=== PATIENT | female | born 1960 | race Caucasian/White ===

== ENCOUNTER 2019-10-09 07:13 | Outpatient (REF) | payer SELFPAY ==
[2019-10-09 11:27] LABS: Estmated Average Glucose 123; Hemoglobin A1C 5.9 % (4.0-6.0)
[2019-10-09 11:34] LABS: Chol HDL Ratio 3.19 mg/dL (0.0-4.40); Cholesterol 150 mg/dL (0-200); Glucose 101 mg/dL (65-115); HDL Cholesterol 47 mg/dL (60-100); LDL Cholesterol Calculated 81 mg/dL (50-129); LDL HDL Ratio 1.72 RATIO (0.00-3.22); Thyroid Stimulating Hormone 3.76 uIU/mL (0.27-4.20); Triglycerides 111 mg/dL (0-150)
== END 2019-10-09 07:14 | disposition home or self-care (01) ==
LOC: LAB 07:13
PROVIDERS: Family Provider Internal Medicine; Visit Provider Dermatology
DX: Z01.89 Encounter for other specified special examinations (principal)
CPT/HCPCS: 80061; 82947; 83036; 84443

== ENCOUNTER 2025-06-11 14:38 | Outpatient (CLI) | payer MEDICARE, SELFPAY ==
--- NOTE | 2025-06-11 14:47 | MM_ITS ---
WS: [id number] BILATERAL 3D TOMOSYNTHESIS DIGITAL SCREENING MAMMOGRAPHY WITH CAD CLINICAL INFORMATION: SCREENING HISTORY: Screening mammogram. No current complaints. COMPARISON: 2012 TECHNIQUE: Bilateral CC and MLO views. FINDINGS: Scattered fibroglandular densities bilaterally. Small 4 mm ovoid asymmetric density anterior lateral LEFT breast. Recommend further evaluation with LEFT breast diagnostic mammography and ultrasound if persistent. This is only well seen on the view. Unremarkable RIGHT breast. MM/MM [facility] tomosynthesis [id number] IMPRESSION: DENSITY: There are scattered areas of fibroglandular density. BI-RADS: 0 - Incomplete: Need additional imaging evaluation. FOLLOW UP: Need Additional Imaging Recommend LEFT breast diagnostic mammography and ultrasound if persistent
== END 2025-06-11 14:39 | disposition home or self-care (01) ==
LOC: RAD 14:44
PROVIDERS: PCP Family Medicine; Visit Provider Family Medicine
DX: Z12.31 Encounter for screening mammogram for malignant neoplasm of breast (principal); R92.323 Mammographic fibroglandular density, bilateral breasts; N64.89 Other specified disorders of breast
CPT/HCPCS: 77063; 77067

== ENCOUNTER 2025-07-01 12:45 | Outpatient (CLI) | payer MEDICARE, SELFPAY ==
--- NOTE | 2025-07-01 12:55 | MM_ITS ---
WS: [id number] LEFT 3D TOMOSYNTHESIS DIGITAL MAMMOGRAPHY WITH CAD CLINICAL INFORMATION: ABNORMAL MAMMO HISTORY: Additional views COMPARISON: 06/11/2025 TECHNIQUE: 3 views of the left breast were obtained. FINDINGS: Scattered fibroglandular densities of the left breast. Again seen is the 4 mm ovoid asymmetric density anterior lateral LEFT breast. This is persistent. Ultrasound described below. ULTRASOUND BREAST LEFT TECHNIQUE: Ultrasound left breast focused area of concern. CLINICAL INFORMATION: ABNORMAL MAMMO FINDINGS: Ultrasound 2 to 4 o'clock position LEFT breast 3 cm from the nipple. At the 2 o'clock position is a dense band of lobulated parenchymal tissue. This is probably benign. I personally scanned this area and did not visualize a discrete mass. Recommend 6-month follow-up to confirm stability of this area. MM/MM diag [place] tomosynthesis [id number] IMPRESSION: DENSITY: There are scattered areas of fibroglandular density. BI-RADS: 3 - Probably Benign. FOLLOW UP: 6 Month Follow-up Recommend 6-month follow-up LEFT breast diagnostic mammography and ultrasound t o confirm stability. Perform ultrasound 2 to 4 o'clock position LEFT breast.
== END 2025-07-01 12:46 | disposition home or self-care (01) ==
LOC: RAD 12:46
PROVIDERS: PCP Family Medicine; Visit Provider Family Medicine
DX: R92.8 Other abnormal and inconclusive findings on diagnostic imaging of breast (principal); R92.322 Mammographic fibroglandular density, left breast; N64.89 Other specified disorders of breast
CPT/HCPCS: 76642; 77061; 77063

== ENCOUNTER 2025-07-14 08:59 | Outpatient (CLI) | payer MEDICARE, SELFPAY ==
--- NOTE | 2025-07-14 09:06 | CT_ITS ---
WS: [id number] CT ABDOMEN AND PELVIS WITH CONTRAST HISTORY: ELEVATED LFT'S TECHNIQUE: Imaging performed of the abdomen and pelvis with IV contrast. Dual phase imaging of the abdomen. Coronal and sagittal reformats are submitted. All CT scans at [facility] use at least one of these dose optimization techniques: automated exposure control; mA and/or kV adjustment per patient size (includes targeted exams where dose is matched to clinical indication); or iterative reconstruction. IV CONTRAST: Omnipaque 350; 100 mL IV. Oral contrast: No DLP: 1601.60 mGy.cm COMPARISON: Liver ultrasound 06/30/2025 Lower thorax: Lung bases are clear. Heart is normal size. Small hiatal hernia. Liver/biliary system: Liver is slightly enlarged with mild hepatic steatosis. There are 3 small areas of decreased attenuation which do not enhance. These are most consistent with hepatic cysts. The largest in the peripheral RIGHT lobe measures 7 mm. The smallest is approximately 2 mm in the LEFT lobe. This is probably too small to completely characterize by imaging. No intrahepatic duct dilatation. The portal vein is normal. Gallbladder: Normally distended gallbladder. Stones are noted within the gallbladder. The stones were better appreciated by ultrasound. No evidence for acute cholecystitis. Pancreas: Normal size pancreas and pancreatic duct. No adjacent inflammation. Spleen: Normal size spleen. No mass or infarct. Adrenal glands: Well-circumscribed RIGHT adrenal mass measures 2.3 cm. This is most likely a benign adenoma. LEFT adrenal gland is normal. Right kidney: Normal. Left kidney: Normal. Aorta: Normal. Lymphadenopathy: None. Free fluid: None. GI tract: No GI tract obstruction. Postsurgical changes in the RIGHT lower quadrant near the cecum. The appendix is not identified. There are a few diverticula in the sigmoid colon without acute diverticulitis. Abdominal wall: Unremarkable abdominal wall. No hernia. Pelvis: No free fluid or adenopathy within the pelvis. Bones: Unremarkable. CT/CT abdomen pelvis w con* [id number] IMPRESSION: 1. Hepatic steatosis and mild hepatomegaly. 2. Nonenhancing peripheral low-attenuation masses in the RIGHT lobe of the flaco er are most consistent with cysts. This corresponds to the findings on the rece nt ultrasound. There is a 2 mm low-attenuation nodule in the LEFT lobe of the l iver which is too small to be characterized by any imaging study. 3. Cholelithiasis without acute cholecystitis. 4. Well-circumscribed RIGHT adrenal mass 2.3 cm is most likely an adenoma. 5. No adenopathy or ascites.
[2025-07-14] MEDS: iohexol 350 mg/mL 500 mL Btl (per mL) IV (09:34)
== END 2025-07-14 09:00 | disposition home or self-care (01) ==
LOC: RAD 09:02
PROVIDERS: PCP Family Medicine; Visit Provider Family Medicine
DX: R79.89 Other specified abnormal findings of blood chemistry (principal); K76.0 Fatty (change of) liver, not elsewhere classified; K76.89 Other specified diseases of liver; K80.20 Calculus of gallbladder without cholecystitis without obstruction; E27.9 Disorder of adrenal gland, unspecified
CPT/HCPCS: 74177